=== PATIENT | female | born 1990 | race African-American/Black ===

== ENCOUNTER 2019-06-28 08:48 | Emergency (ER) | payer SELFPAY ==
[~2019-06-28] VITALS: Ht 160 cm; Wt 72.6 kg
--- OUTSIDE RECORDS SUMMARY | 2019-06-28 08:54 | XMS REPORT | Continuity of Care Document ---
Author Organization Unknown Address Unknown Phone Unavailable Allergies There is no data. Medications Medication Packaging Start Date Stop Date Route Dosage Sig trimethoprim-sulfamethoxazole, 160-800 mg / tab, (BACTRIM DS) tablet -- Take 1 tablet by mouth two times a day for 10 days tablet 11/20/2018 11/30/2018 Oral 2 TIMES A DAY 2 TIMES A DAY Problems Date Dx Coded Attending Type Code Diagnosis Diagnosed By 11/20/2018 WORKING N61.1 Abscess of the breast and nipple Procedures There is no data. Results There is no data. Encounters ACCT No. Visit Date/Time Discharge Status Pt. Type Provider Facility Loc./Unit Complaint [id number] 11/20/2018 13:03:06 11/20/2018 23:59:59 [facility] Outpatient [id number] 11/23/2017 08:25:00 11/23/2017 23:59:59 [facility] Outpatient [facility]
--- OUTSIDE RECORDS SUMMARY | 2019-06-28 08:54 | XMS REPORT ---
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 [id number] [address] Nov, Sore throat J02.9 and Strep pharyngitis J02.0 IMMUNIZATIONS No Known Immunizations SOCIAL HISTORY Never Assessed REASON FOR VISIT sore throat starting yesterday Vimal TEAGUE PLAN OF CARE Activity Details Follow Up prn Reason: VITAL SIGNS Weight 154.4 lbs 2017-11-23 Temperature 98.5 degrees Fahrenheit 2017-11-23 Heart Rate 100 bpm 2017-11-23 Respiratory Rate 22 2017-11-23 Blood pressure systolic 106 mmHg 2017-11-23 Blood pressure diastolic 70 mmHg 2017-11-23 MEDICATIONS Medication Instructions Dosage Frequency Start Date End Date Duration Status Amoxicillin 875 MG Orally every 12 hrs 1 tablet 12h Nov, Nov, 10 day(s) Active RESULTS Name Result Date Reference Range STREP A (IN HOUSE) 2017-11-23 STREP A positive Control + Lot # [id number] Exp date 10/18/2018 PROCEDURES Procedure Date Ordered Result Body Site STREP A ASSAY W/OPTIC Nov 23, 2017 INSTRUCTIONS MEDICATIONS ADMINISTERED No Known Medications
--- NOTE | 2019-06-28 09:18 | ED Cough/URI ---
General Chief Complaint: Fever-Adult/Adol Stated Complaint: FEVER x3 DAYS,COUGH Source: patient Exam Limitations: no limitations (VIOLA GODWIN) History of Present Illness Date Seen by Provider: Jun 28, 2019 Time Seen by Provider: 09:00 Initial Comments Pt presents with cough and a fever for 3 days. She states the symptoms started as cough for which she took some cough syrup and cold medicine. The cough is sometimes productive of a green colored sputum. The medications did not help and she now has chills, shortness of breath when lying down, sweating, body aches, nausea/vomiting, runny/stuffy nose, headache and sinus pressure. She has no allergies and takes no other medications. She works at a [employer]. Timing/Duration: getting worse, other (3 days) Severity/Quality: severe Prior Episodes/Possible Cause: no prior episodes Modifying Factors: Improves With Lying Down Associated Symptoms: cough, facial pain, fever/chills, headache, muscle aches, nasal congestion, nasal drainage, shortness of breath (VIOLA GODWIN) Timing/Duration: getting worse, other (3 days) Severity/Quality: moderate, productive cough Modifying Factors: Improves With Albuterol Nebulizer Associated Symptoms: cough, facial pain, fever/chills, headache, muscle aches, sore throat (HERMES SHIPLEY MD) Allergies and Home Medications Allergies Coded Allergies: No Known Drug Allergies (Unverified , 06/28/19) Patient Home Medication List Home Medication List Reviewed: Yes (HERMES SHIPLEY MD) Review of Systems Review of Systems Constitutional: chills, diaphoresis, fever, weakness EENTM: nose congestion; No blurred vision, No double vision, No vision loss Respiratory: cough, phlegm, short of breath Cardiovascular: no symptoms reported Gastrointestinal: loss of appetite, nausea, vomiting Genitourinary: no symptoms reported Musculoskeletal: see HPI Skin: no symptoms reported Psychiatric/Neurological: No Symptoms Reported Hematologic/Lymphatic: No Symptoms Reported Immunological/Allergic: no symptoms reported (VIOLA GODWIN) Constitutional: see HPI (HERMES SHIPLEY MD) All Other Systems Reviewed Negative Unless Noted: Yes (HERMES SHIPLEY MD) Past Yzlldcv-Egbtcp-Xwurws Hx Past Med/Social Hx: Reviewed Nursing Past Med/Soc Hx (HERMES SHIPLEY MD) Patient Social History Alcohol Use: Denies Use Smoking Status: Current Everyday Smoker Type Used: Cigarettes Recent Foreign Travel: No Contact w/Someone Who Travel: No (VIOLA GODWIN) Past Medical History Surgeries: No Respiratory: No Cardiac: No (HERMES SHIPLEY MD) Family Medical History No Pertinent Family Hx (HERMES SHIPLEY MD) Physical Exam Vital Signs - First Documented 06/28/19 08:53 Temp 99.7 Pulse 88 Resp 14 B/P (MAP) 140/89 (106) Pulse Ox 99 O2 Delivery Room Air (HERMES SHIPLEY MD) Capillary Refill : (VIOLA GODWIN) Height: '" Weight: lbs. oz. kg; BMI Method: General Appearance: mild distress Eyes: Bilateral Eye Normal Inspection, Bilateral Eye PERRL HEENT: PERRL/EOMI, TMs normal Neck: lymphadenopathy (R), tender lateral Cardiovascular: regular rate, rhythm, no edema, no gallop, no JVD, no murmur Neurologic/Psychiatric: alert, normal mood/affect, oriented x 3 Skin: normal color, warm/dry Lymphatic: other (Right cervical chain lymphadenopathy) (VIOLA GODWIN) General Appearance: WD/WN, mild distress HEENT: PERRL/EOMI, TMs normal, other (moderate bilateral nasal congestion with clear rhinorrhea and moderate erythema) Respiratory: no accessory muscle use, wheezing, other (course cough and a few trace wheezes) Cardiovascular: regular rate, rhythm, no murmur Gastrointestinal: non tender, soft Neurologic/Psychiatric: alert, oriented x 3 Skin: normal color, warm/dry (HERMES SHIPLEY MD) Progress/Results/Core Measures Suspected Sepsis SIRS Temperature: Pulse: Respiratory Rate: Blood Pressure / Mean: (VIOLA GODWIN) Results/Orders My Orders Orders - HERMES SHIPLEY MD Dexamethasone Injection (Decadron Inject (06/28/19 09:45) Chest Pa/Lat (2 View) (06/28/19 09:39) Rx-Albuterol Inhaler (Rx-Proair) (06/28/19 09:45) Ibuprofen Tablet (Motrin Tablet) (06/28/19 09:39) (HERMES SHIPLEY MD) Medications Given in ED Current Medications Medications Dose Ordered Sig/Walter Route Start Time Stop Time Status Last Admin Dose Admin Albuterol Sulfate 2 PUFFS QID PRN IH 06/28/19 09:45 06/28/19 10:56 8.5 GM Dexamethasone Sodium Phosphate 10 mg ONCE ONCE IM 06/28/19 09:45 06/28/19 09:46 DC 06/28/19 09:47 10 MG (HERMES SHIPLEY MD) Vital Signs/I&O 06/28/19 08:53 Temp 99.7 Pulse 88 Resp 14 B/P (MAP) 140/89 (106) Pulse Ox 99 O2 Delivery Room Air (HERMES SHIPLEY MD) Vital Signs/I&O Capillary Refill : (VIOLA GODWIN) Progress Note : Progress Note 09: Seen and evaluated by me. Severe cough noted with tender lymph nodes on right cervical area. Needs a CXR. Sputum culture. CBC needs order. Reported back to Dr. Shipley with findings. (VIOLA GODWIN) Progress Note : Progress Note Seen and evaluated the patient and agree with above except as indicated. I have directed the plan of care. We will initiate chest x-ray and give Decadron 10 mg IM and ibuprofen 600 mg by mouth pending chest x-ray results. We will consider further testing after that. Monitor patient. 1107: Doing better after albuterol MDI teaching. No indication of pneumonia. We will go ahead and treat as outpatient. I will prescribe amoxicillin for possible sinusitis. Discharged home with return precautions. Patient verbalize understanding instructions and agreement with plan. (HERMES SHIPLEY MD) ECG Initial ECG Rhythm: Normal Sinus (VIOLA GODWIN) Diagnostic Imaging Diagonstic Imaging: Xray Plain Films/CT/US/NM/MRI: chest Comments [facility], [place] NAME: ARNULFO UNDERWOOD Annabelle MED REC#: [id number] PT STATUS: REG ER : 1990 PHYSICIAN: HERMES SHIPLEY MD ADMIT DATE: 06/28/19/ER Draft Date of Exam:06/28/19 CHEST PA/LAT (2 VIEW) INDICATION: Fever and cough x3 days. Chest discomfort. TECHNIQUE: Two view chest 10:31 AM CORRELATION STUDY: None FINDINGS: The heart size, mediastinal configuration and pulmonary vasculature are within normal limits. The lungs are clear with no consolidating infiltrate. There is no significant pleural effusion or pneumothorax. Visualized osseous structures are unremarkable. IMPRESSION: 1. No radiographic evidence for acute abnormality of the chest. Dictated on workstation # [id number] Dict: 06/28/19 1037 Trans: 06/28/19 [facility] DO [id number] Interpreted by: BACILIO RICE DO Electronically signed by: (HERMES SHIPLEY MD) Departure Impression Primary Impression: Bronchitis Additional Impression: Acute sinusitis Qualified Codes: J01.90 - Acute sinusitis, unspecified Disposition: HOME, SELF-CARE Condition: Stable Departure-Patient Inst. Decision time for Depature: 11:09 (HERMES SHIPLEY MD) Referrals: [facility] [place] Primary Care Physician Patient Instructions: Sinusitis in Adults, Acute Bronchitis, Adult (DC) Add. Discharge Instructions: All discharge instructions reviewed with patient and/or family. Voiced understanding. You may take Tylenol/acetaminophen 1000 mg every 8 hours as needed for fever or pain. You may take ibuprofen 600 mg every 8 hours as needed for fever or pain. You may use Afrin nasal spray or the generic, 12 hour relief, 2 sprays to each nostril twice daily for 3 days only and then stop. Do not use more than 3 days. Follow-up with your Dr. in a few days for recheck. Drink plenty of fluids. Return for worse pain, fever, vomiting, weakness, breathing problems or other concerns as needed. Scripts Amoxicillin (Amoxicillin) 500 Mg Capsule 1000 MG PO TID, #42 CAP 0 Refills Prov: HERMES SHIPLEY MD 06/28/19 Work/School Note: Work Release Form Date Seen in the Emergency Department: Jun 28, 2019 Return to Work: Jun 29, 2019 Restrictions: No Restrictions VIOLA GODWIN [facility] Jun 28, 2019 09:18 HERMES SHIPLEY MD Jun 28, 2019 11:06
[2019-06-28] MEDS ORDERED: IBUPROFEN TABLET 200 MG TAB PO STA (09:39)
[2019-06-28] MEDS ORDERED: RX-ALBUTEROL INHALER (PROAIR) 8.5 GM IH PRN (09:45)
[2019-06-28] MEDS ORDERED: DEXAMETHASONE 10 MG/ML (DECADRON) 1 ML VIAL IM ONE (09:45)
--- NOTE | 2019-06-28 10:37 | Diagnostic Imaging Report ---
INDICATION: Fever and cough x3 days. Chest discomfort. TECHNIQUE: Two view chest 10:31 AM CORRELATION STUDY: None FINDINGS: The heart size, mediastinal configuration and pulmonary vasculature are within normal limits. The lungs are clear with no consolidating infiltrate. There is no significant pleural effusion or pneumothorax. Visualized osseous structures are unremarkable. IMPRESSION: 1. No radiographic evidence for acute abnormality of the chest. Dictated by: Dictated on workstation # [id number]
[2019-06-28] MEDS ORDERED: AMOX500C2 PO (11:12)
[2019-06-28 11:22] VITALS: BP 133/91
== END 2019-06-28 11:18 | disposition home or self-care (01) ==
LOC: EDUNIT# 08:48 → ER 08:50
DX: J40 Bronchitis, not specified as acute or chronic (principal); J01.90 Acute sinusitis, unspecified; F17.210 Nicotine dependence, cigarettes, uncomplicated
CPT/HCPCS: 71046; 94640; 94664